=== PATIENT | female | born 1955 | race Caucasian/White ===

== ENCOUNTER → 2021-01-09 | Outpatient (CLI) | payer OTHER ==
[~2021-01-09] MED LIST: NOHOMEMEDICATIONS; NORCO 5-325 TA1 EACH PO
--- NOTE | 2021-01-28 14:44 | SLEEP ---
[address] [address] SLEEP STUDY REPORT Name: BRYAN TERESA Room: [facility].#: [id number] Admission: 01/09/21 Attend Phys: Beltran Moreno Discharge: Date of : 57 Report #: [id number] THIS REPORT FOR: cc: Chichi Catrwright Linda J. DO Pervez, Adeel MD ~ This study has been reviewed in its entirety by a board certified sleep specialist DATE OF SERVICE: 01/09/2021 SLEEP STUDY INDICATION FOR SLEEP STUDY: Obstructive sleep apnea/daytime sleepiness/snoring. INTERPRETATION: Total duration of the study is 479 minutes out of which she was asleep for 347 minutes with an overall sleep efficiency of 72%. Sleep onset initially occurred around 40 minutes after lying down in bed and therefore was delayed. REM onset occurred 146 minutes after sleep onset. N1 sleep duration was 8%, N2 duration is 52%, N3 duration was 32% and REM duration was 18%. This is a split night sleep study. Initially, the patient was not on a positive airway pressure therapy for 268 minutes, this included 186 minutes of sleep time, which in turn included 36 minutes of REM sleep. During this time duration, we recorded multiple sleep related respiratory events. These included a 28 obstructive apneas in addition to 36 hypopneas and 47 respiratory effort related arousals. Overall, apnea-hypopnea index was 20.7. events were more common in REM sleep. REM apnea-hypopnea index was higher at 71. Body position data indicates the patient was observed asleep in the supine position for 56 minutes. Rest of the time, the patient was either in the right or the left side. Events are more common in the supine position. Supine apnea-hypopnea index is 61.1. Mean heart rate is 74 during the diagnostic portion of the sleep study with a periodic limb movement index elevated to 41. Periodic limb movement index with arousals is also elevated to 19. There is significant sleep fragmentation observed with an arousal index elevated to 56. We also observed multiple desaturations. Overall, we recorded O2 saturation less than 88% for 8.8 minutes and less than 90% for 9.6 minutes. The patient was subsequently placed on a CPAP and was observed on CPAP therapy for 211 minutes, this included 161 minutes of sleep time, which in turn included 27 minutes of REM sleep. Mean heart rate was now 71. Periodic limb movement index improved to 6.0, which is normal. Arousal index improved to 39.9. [place] [address] SLEEP STUDY REPORT Name: BRYAN TERESA [facility] [id number] Admission: 01/09/21 Attend Phys: Beltran Moreno Discharge: Date of : 57 Report #: [id number] Review of the CPAP titration indicates the patient was titrated beginning with a CPAP pressure of 8 cm of water, gradually increasing it to 11 cm of water. The patient had a favorable response to CPAP therapy, obstructive apneas were eliminated. There were only rare hypopneas recorded. Occasional central apneas did continue to occur. On a CPAP pressure of 10 cm of water the patient's apnea-hypopnea index is 7.9 with only occasional central apneas occurring. The patient is seen in sustained N2 as well as REM sleep on a CPAP pressure of 10 cm of water and a slightly lower pressure of 9 cm of water the patient is observed for a shorter period of time but the overall apnea-hypopnea index is lower at 3.4. There are only rare central apneas occurring. O2 saturation is adequately maintained on both the CPAP pressures. IMPRESSION: 1. Obstructive sleep apnea with an apnea-hypopnea index of 20.7. 2. Mild nocturnal hypoxemia as described above. 3. There is a positional variation events are more common in supine sleep. 4. Events were also more common in REM sleep as described above. 5. With the administration of a CPAP of 9-10 cm of water, there is marked improvement in the patient's obstructive sleep apnea noted. O2 saturation is also adequately maintained. Rare central apneas do continue to occur on these CPAP pressures. RECOMMENDATIONS: Due to the presence of occasional central events electing to initially recommend the lower of the 2 CPAP pressures discussed above recommend placing the patient on a CPAP of 9 cm of water with heated humidity and mask per patient preference while asleep. During the sleep study, an [employer] 2 nasal mask, size small with a C-Flex of 3 was used. Recommend instructing the patient to avoid lying supine and lay on sides as much as possible if clinically appropriate. The likelihood is that if the patient does use the CPAP regularly then over a period of time, the rare central apneas we will still observing on the final CPAP pressure we will see as to occur, however the patient was to remain symptomatic despite regular use of CPAP, then a repeat sleep study for repeat positive airway pressure titration in the next few months can be a later consideration. If clinically appropriate, then recommend weight loss. Recommend avoiding driving or other activities requiring vigilance if drowsy. [facility] [address] [facility] [place] [place] [address] SLEEP STUDY REPORT Name: BRYAN TERESA Room: [facility]#: [id number] Admission: 01/09/21 Attend Phys: Beltran Moreno Discharge: Date of : 57 Report #: [id number] This entire sleep study was reviewed by board certified sleep physician. <ELECTRONICALLY SIGNED> By: Maximo Jimenez MD 01/28/21 [id number] Jimenez MD /nt
== END ==
LOC: M.SLEEPLAB 19:53
PROVIDERS: ATTEND Family Medicine
DX: G47.30 Sleep apnea, unspecified (principal); R79.81 Abnormal blood-gas level